=== PATIENT | female | born 1960 | race American Indian/Alaskan Native ===

== ENCOUNTER 2016-11-02 10:31 | Outpatient (CLI) | payer OTHER ==
--- NOTE | 2016-11-02 14:57 | Mammography Report ---
BONE DENSITY STUDY: DEFINITIONS: BMD = Bone Mineral Density T-score = BMD related to mean peak bone mass of young adult (mean expressed in Standard Deviation) Z-score = Age matched BMD expressed in SD World Health Organization (WHO) Diagnostic Criteria Normal T-score > -1 SD Osteopenia T-score between -1 and -2.4 SD Osteoporosis T-score -2.5 SD or below FINDINGS: The weighted average BMD of lumbar spine L1-L4 is 0.839 with a T-score of -1.9. Compared to a previous study performed on October 06, 2014, this represents an interval change of 2.4%. The weighted average BMD of hip is 0.917 with a T-score of -0.2. This represents an interval change of 0%. IMPRESSION: The patient's T-score is diagnostic for osteopenia and average relative risk for fracture. NOTE: BMD is not the only risk factor for fracture; also consider factors such as the patient's age, risk of falling, previous osteoporotic fracture, family history of osteoporotic fractures, current smoker, and low body weight. Vega's triangle is a region of interest in femur, predominantly of trabecular bone. It is not a true anatomic site, and [facility] does not recommend its use clinically.
== END 2016-11-02 10:32 | disposition home or self-care (01) ==
LOC: MAMMO 10:31
PROVIDERS: ATTEND Internal Medicine Hematology & Oncology
DX: M81.0 Age-related osteoporosis without current pathological fracture (principal); M85.80 Other specified disorders of bone density and structure, unspecified site
CPT/HCPCS: 77080

== ENCOUNTER 2017-06-04 09:46 | Outpatient (CLI) | payer OTHER ==
--- NOTE | 2017-06-04 11:08 | Ultrasound Report ---
Left breast ultrasound: Patient left mastectomy and recently palpated lump for the past 2 months. Implant placed in 2016. Imaging over the area of concern is located in the 2:00 position approximately 11 cm from the nipple. There is a sharply defined, elongated, hypoechoic collection just anterior to the implant within what appears to be the muscle layer. There is a linear high reflection echo within it but is otherwise relatively homogeneous. It measures approximately 2.5 x 10 mm., Imaging shows no significant internal flow but there may be a slight flow pattern along the posterior margin. Impressions: Indeterminate finding consistent with palpable abnormality. Recommendations: Additional evaluation would include ultrasound-guided aspiration/biopsy or MR scan. The findings and recommendations have been discussed with the patient. BI-RADS CATEGORY: 4 = Suspicious ACR BI-RADS MAMMOGRAPHIC CODES: 0 = Needs additional imaging evaluation; 1 = Negative; 2 = Benign; 3 = Probably benign; 4 = Suspicious; 5 = Malignant; 6 = Known biopsy-proven malignancy COMMENT: 1. Dense breast tissue, i.e., adenosis, fibrocystic changes, etc., may obscure an underlying neoplasm. 2. Approximately 10% of cancers are not detected with mammography. 3. A negative mammography report should not delay biopsy if a clinically suspicious mass is present.
== END 2017-06-04 09:47 | disposition home or self-care (01) ==
LOC: SPVWC 09:46
PROVIDERS: ATTEND Internal Medicine Hematology & Oncology
DX: C50.212 Malignant neoplasm of upper-inner quadrant of left female breast (principal); R19.7 Diarrhea, unspecified; R53.81 Other malaise; Z98.82 Breast implant status

== ENCOUNTER 2020-04-07 14:48 | Outpatient (CLI) | payer OTHER ==
--- NOTE | 2020-04-07 16:46 | XRay Report ---
RIGHT HIP 3 VIEWS RIGHT FEMUR 2 VIEWS INDICATION / CLINICAL INFORMATION: Right hip and leg pain. COMPARISON: None available. FINDINGS: BONES / JOINT(S): There are mild tricompartmental degenerative changes involving the knee. The hip wil int spaces are well-maintained. There is no evidence of fracture, subluxation or destructive lesion. No joint effusion. SOFT TISSUES: No significant abnormality. ADDITIONAL FINDINGS: None. Signer Name: Mart Regalado MD Signed: 04/07/2020 4:41 PM Workstation Name: [id number]
== END 2020-04-07 14:49 | disposition home or self-care (01) ==
LOC: SPVIMAG 14:48
PROVIDERS: ATTEND Internal Medicine Hematology & Oncology
DX: M17.11 Unilateral primary osteoarthritis, right knee (principal); C50.212 Malignant neoplasm of upper-inner quadrant of left female breast; R19.7 Diarrhea, unspecified; R53.81 Other malaise